=== PATIENT | female | born 1985 | race Caucasian/White ===

== ENCOUNTER 2016-12-31 19:12 | Emergency (ER) | payer MEDICAID, OTHER, SELFPAY ==
[~2016-12-31] VITALS: Ht 165.1 cm; Wt 86.6 kg
[~2016-12-31 19:12] MED LIST: ACET50TA PO; IBUP80TA PO; VITAPRTA PO
[2016-12-31] MEDS ORDERED: IBUPROFEN 600 MG TAB PO ONE (20:30)
[2016-12-31] MEDS ORDERED: IBUP-1022 PO (20:49)
[2016-12-31 20:59] VITALS: BP 131/77
--- NOTE | 2017-01-01 01:30 | REP ---
Clinical: Pain. Technique: AP, lateral, bilateral oblique views right foot . Findings: The osseous structures and joint spaces are intact and normal. Small calcaneal heal spur noted. There is no evidence for acute fracture or dislocation. Surrounding soft tissues are unremarkable. No subcutaneous emphysema or radiodense foreign body. Impression: Calcaneal heal spur. No acute fracture or dislocation. Signed by Mark Carmona MD 01/01/2017 01:22 A
== END 2016-12-31 21:01 | disposition home or self-care (01) ==
LOC: M ED 19:12
DX: S96.911A Strain of unspecified muscle and tendon at ankle and foot level, right foot, initial encounter (principal); M77.31 Calcaneal spur, right foot; W19.XXXA Unspecified fall, initial encounter; Y92.019 Unspecified place in single-family (private) house as the place of occurrence of the external cause; Y93.89 Activity, other specified; Y99.8 Other external cause status; F17.200 Nicotine dependence, unspecified, uncomplicated

== ENCOUNTER 2017-11-20 10:53 | Emergency (ER) | payer OTHER, SELFPAY ==
[2017-11-20] MEDS: cefTRIAXone SOD 1 GM VIAL (J0696) IM (12:12)
== END 2017-11-20 12:35 | disposition home or self-care (01) ==
LOC: M ED 10:53
DX: L03.211 Cellulitis of face (principal); S02.5XXD Fracture of tooth (traumatic), subsequent encounter for fracture with routine healing; X58.XXXD Exposure to other specified factors, subsequent encounter; Y92.89 Other specified places as the place of occurrence of the external cause; Z91.018 Allergy to other foods; Z91.030 Bee allergy status; Z87.891 Personal history of nicotine dependence
CPT/HCPCS: J0696

== ENCOUNTER → 2018-03-09 | Outpatient (REF) | payer OTHER | LOC: M LAB REF 17:12 | DX: J02.9 Acute pharyngitis, unspecified (principal) ==

== ENCOUNTER 2018-12-23 19:02 | Emergency (ER) | payer OTHER ==
[~2018-12-23] VITALS: Ht 165.1 cm; Wt 93.6 kg
[~2018-12-23 19:02] MED LIST changes: -ACET50TA PO; +HYDR-3715 PO; +IBUP-1022 PO; +KEFL500C17 PO; +MAPA500T2 PO; +TYLE325T5 PO
[2018-12-23 20:05] LABS: BASO % 0.2 % (0.0-1.0); EOS # 0.2 10^3/uL (0.0-0.50); EOS % 2.6 % (0.0-3.0); HEMATOCRIT 40.4 % (36.0-47.0); LYMPH # 2.6 10^3/uL (1.5-4.5); LYMPH % 30.5 % (24.0-44.0); MEAN CORPUSCULAR HGB CONC 32.2 g/dl (32.0-36.5); MONO # 0.6 10^3/uL (0.0-0.8); MONO % 6.6 % (0.0-5.0); NEUTROPHILS # 5.2 10^3/uL (1.8-7.7); NEUTROPHILS % 59.8 % (36.0-66.0); PLATELET COUNT, AUTOMATED 290 10^3/uL (150-450); RED BLOOD COUNT 4.49 10^6/uL (4.00-5.40); WHITE BLOOD COUNT 8.6 10^3/uL (4.0-10.0)
[2018-12-23 20:32] LABS: ALBUMIN 3.9 GM/DL (3.2-5.2); ALT/SGPT 30 U/L (12-78); BILIRUBIN,DIRECT < 0.1 MG/DL (0.0-0.2); BILIRUBIN,TOTAL 0.3 MG/DL (0.2-1.0); BLOOD UREA NITROGEN 9 MG/DL (7-18); CALCIUM LEVEL 9.4 MG/DL (8.5-10.1); CARBON DIOXIDE LEVEL 26 MEQ/L (21-32); CHLORIDE LEVEL 109 MEQ/L (98-107); CREATININE FOR GFR 0.78 MG/DL (0.55-1.30); GLOMERULAR FILTRATION RATE > 60.0 (>60); GLUCOSE, FASTING 84 MG/DL (70-100); LIPASE 188 U/L (73-393); POTASSIUM SERUM 4.4 MEQ/L (3.5-5.1); SODIUM LEVEL 142 MEQ/L (136-145); TOTAL PROTEIN 7.7 GM/DL (6.4-8.2)
[2018-12-23] MEDS ORDERED: ONDANSETRON 4MG/2ML VIAL (J2405) IV ONE (20:45)
[2018-12-23] MEDS ORDERED: KETOROLAC 30 MG/ML VIAL (J1885) IV ONE (20:45)
[2018-12-23] MEDS ORDERED: ISOVUE-370 76% 100ML VIAL (Q9967) As Ordered ONE (21:02)
--- NOTE | 2018-12-23 22:26 | REPVR ---
EXAM: CT Abdomen and Pelvis With Contrast EXAM DATE/TIME: 12/23/2018 9:08 PM CLINICAL HISTORY: 33 years old, female; Abdominal pain; Localized; Left lower quadrant (llq); Additional info: Llq pain, RO diverticulitis TECHNIQUE: Imaging protocol: Axial computed tomography images of the abdomen and pelvis with intravenous contrast. Coronal and sagittal reformatted images were created and reviewed. Radiation optimization: All CT scans at this facility use at least one of these dose optimization techniques: automated exposure control; mA and/or kV adjustment per patient size (includes targeted exams where dose is matched to clinical indication); or iterative reconstruction. Contrast material: ISOVUE 370; Contrast volume: 100 ml; Contrast route: IV; COMPARISON: US OBS FOLL UP OR REPEAT EACH GES 09/04/2014 8:25 AM FINDINGS: Lungs: Mild dependent linear stranding and groundglass, likely due to atelectasis. Liver: Diffuse hepatic steatosis. Gallbladder and bile ducts: No radiodense gallstones. No biliary ductal dilatation. Pancreas: Unremarkable. Spleen: Unremarkable. Adrenals: Unremarkable. Kidneys and ureters: No mass. No radiodense calculi. No hydronephrosis. Stomach and bowel: No bowel wall thickening. No obstruction. No pneumatosis. Appendix: Normal. Intraperitoneal space: Trace nonspecific free pelvic fluid, likely physiologic. No organized fluid collection. No free air. Vasculature: Unremarkable. No aneurysm. Lymph nodes: No pathologically enlarged lymph nodes. Bladder: Unremarkable. Reproductive: 2.5 x 2.1 cm left adnexal cystic lesion, likely a dominant follicle. Bones/joints: No acute osseous abnormality. Osteopenia. Soft tissues: Unremarkable. IMPRESSION: 1. No CT evidence of acute intra-abdominal or pelvic pathology. 2. Additional findings, as above. Electronically signed by: Chadwick Hong On 12/23/2018 22:25:47 PM
--- NOTE | 2018-12-23 22:32 | REPVR ---
EXAM: US Pelvis Complete, Transabdominal and US Pelvis, Transvaginal EXAM DATE/TIME: 12/23/2018 9:49 PM CLINICAL HISTORY: 33 years old, female; Pelvic pain; Additional info: Left pelvic ain TECHNIQUE: Imaging protocol: Real-time transabdominal and transvaginal pelvic ultrasound (complete) with image documentation. Transvaginal imaging was used for better evaluation of the endometrium and adnexa. COMPARISON: CT ABD/PEL W/IV CONTRAST ONLY 12/23/2018 9:04 PM FINDINGS: Uterus/cervix: 10.1 x 4.9 x 6.8 cm. Normal endometrial thickness, measuring approximately 15 mm. Right ovary: 3.4 x 1.2 x 2.3 cm. No mass. Normal ovarian blood flow. Left ovary: 2.7 x 2.8 x 2.5 cm. 2.3 x 2 x 2.3 cm dominant follicle. No solid mass. Normal ovarian blood flow. Free fluid: None. Bladder: Normal. IMPRESSION: No acute sonographic findings. Electronically signed by: Chadwick Hong On 12/23/2018 22:32:13 PM
[2018-12-23 23:16] VITALS: BP 128/74
== END 2018-12-23 23:30 | disposition home or self-care (01) ==
LOC: M ED 19:02
DX: N83.292 Other ovarian cyst, left side (principal); K21.9 Gastro-esophageal reflux disease without esophagitis
CPT/HCPCS: 74177; 76830; 76856; 80048; 80076; 81001; 83690; 84702; 85025; 93976; 96374; 96375; 99284; J1885; J2405; Q9967

== ENCOUNTER → 2020-07-06 | Outpatient (REF) | payer OTHER ==
[2020-07-06 20:35] LABS: APPEARANCE, URINE MANUAL CLOUDY (CLEAR); BILIRUBIN, URINE MANUAL OBSCURED (NEGATIVE); COLOR, URINE MANUAL RED (YELLOW); GLUCOSE, URINE (UA) MANUAL OBSCURED mg/dL (NEGATIVE); KETONE, URINE MANUAL OBSCURED mg/dL (NEGATIVE); LEUKOCYTE ESTERASE, URINE MAN OBSCURED (NEGATIVE); NITRITE, URINE MANUAL OBSCURED (NEGATIVE); PH,URINE MAN OBSCURED UNITS (5.0 - 7.0); PROTEIN, URINE MANUAL OBSCURED mg/dL (NEGATIVE); SPECIFIC GRAVITY,URINE MANUAL 1.029 (1.002-1.035); UROBILINOGEN, URINE MANUAL OBSCURED mg/dl (NORMAL)
[2020-07-06 20:36] LABS: BACTERIA, URINE MOD AMOUNT; BLOOD URINE MANUAL OBSCURED (NEGATIVE); HYALINE CAST, URINE NONE SEEN /lpf (0-1); SQUAMOUS EPITHELIAL CELL URINE MOD AMOUNT /hpf (SMALL AMT)
== END ==
LOC: M LAB 20:06
PROVIDERS: ATTEND Physician Assistant Medical
DX: N39.0 Urinary tract infection, site not specified (principal)

== ENCOUNTER 2021-08-27 19:46 | Emergency (ER) | payer OTHER ==
[~2021-08-27] VITALS: Ht 165.1 cm; Wt 87.3 kg
[2021-08-27] MEDS ORDERED: NITROGLYCERIN 0.4 MG SUBL TABLET SL PRN (21:25)
[2021-08-27] MEDS ORDERED: ASPIRIN 81 MG CHEW TABLET PO ONE (21:25)
[2021-08-27 21:38] LABS: BASO # 0.1 10^3/uL (0.0-0.2); BASO % 0.5 % (0.0-1.0); EOS # 0.1 10^3/uL (0.0-0.5); EOS % 1.1 % (0.0-3.0); HEMATOCRIT 40.6 % (36.0-47.0); HEMOGLOBIN 13.5 g/dl (12.0-15.5); LYMPH # 2.4 10^3/uL (1.5-5.0); LYMPH % 23.5 % (24.0-44.0); MEAN CORPUSCULAR HEMOGLOBIN 28.8 pg (27.0-33.0); MEAN CORPUSCULAR HGB CONC 33.3 g/dl (32.0-36.5); MEAN CORPUSCULAR VOLUME 86.6 fl (80.0-96.0); MONO # 0.6 10^3/uL (0.0-0.8); NEUTROPHILS % 68.5 % (36.0-66.0); PLATELET COUNT, AUTOMATED 303 10^3/uL (150-450); RED BLOOD COUNT 4.69 10^6/uL (4.00-5.40); WHITE BLOOD COUNT 10.2 10^3/uL (4.0-10.0)
[2021-08-27 22:22] LABS: CK-MB VALUE MASS < 1.0 NG/ML (<3.6); CPK CREATINE PHOSPHOKINASE 57 U/L (26-192); MB/CK RELATIVE INDEX 1.75 (< OR =4)
[2021-08-27 22:23] LABS: ALBUMIN 4.4 GM/DL (3.2-5.2); ALT/SGPT 22 U/L (12-78); BILIRUBIN,DIRECT < 0.1 MG/DL (0.0-0.2); BILIRUBIN,TOTAL 0.4 MG/DL (0.2-1.0); BLOOD UREA NITROGEN 13 MG/DL (7-18); CALCIUM LEVEL 9.7 MG/DL (8.5-10.1); CARBON DIOXIDE LEVEL 27 MEQ/L (21-32); CHLORIDE LEVEL 107 MEQ/L (98-107); CREATININE FOR GFR 0.91 MG/DL (0.55-1.30); FREE T4 1.07 NG/DL (0.76-1.46); GLOMERULAR FILTRATION RATE > 60.0 (>60); GLUCOSE, FASTING 78 MG/DL (70-100); LIPASE 115 U/L (73-393); NT-PRO BNP 19 PG/ML (<125); SODIUM LEVEL 139 MEQ/L (136-145); TOTAL PROTEIN 7.9 GM/DL (6.4-8.2)
[2021-08-27] MEDS ORDERED: ISOVUE-370 76% 100ML VIAL As Ordered ONE (22:34)
[2021-08-27 23:45] VITALS: BP 137/87
== END 2021-08-28 00:16 | disposition home or self-care (01) ==
LOC: M ED 19:46
DX: R07.9 Chest pain, unspecified (principal); R06.02 Shortness of breath; R05.9 Cough, unspecified; R42 Dizziness and giddiness; Z87.891 Personal history of nicotine dependence; Z91.030 Bee allergy status
CPT/HCPCS: 36415; 71046; 71275; 80048; 80076; 82550; 82553; 83690; 83880; 84439; 84443; 84484; 85025; 93005; 93041; 94760; 99285; Q9967

== ENCOUNTER → 2023-04-03 | Outpatient (CLI) | payer OTHER | LOC: M PLAIMG 10:47 | PROVIDERS: ATTEND Otolaryngology | DX: J32.9 Chronic sinusitis, unspecified (principal) ==

== ENCOUNTER → 2023-04-09 | Outpatient (CLI) | payer OTHER | LOC: M RAD 07:05 | PROVIDERS: ATTEND Otolaryngology | DX: R22.1 Localized swelling, mass and lump, neck (principal) ==

== ENCOUNTER → 2023-05-19 | Outpatient (CLI) | payer OTHER ==
[~2023-05-19] MED LIST changes: +AMOX500T2 PO; +IRON240T PO; +LIDOCAINE 1% MDV 20ML VIAL As Ordered ONE; +MULTTAB24 PO
[2023-05-19 09:25] VITALS: TEMP 99.2
[2023-05-19 11:10] VITALS: BP 157/97; O2SAT 100
== END ==
LOC: M IRPRO 09:01
PROVIDERS: ATTEND Otolaryngology
DX: R22.1 Localized swelling, mass and lump, neck (principal)

== ENCOUNTER 2023-07-01 17:00 | Observation (INO) | payer OTHER ==
[~2023-07-01] VITALS: Ht 165.1 cm; Wt 91.6 kg
[~2023-07-01 17:00] MED LIST changes: -LIDOCAINE 1% MDV 20ML VIAL As Ordered ONE
[2023-07-01 17:59] LABS: BASO % 0.4 % (0.0-1.0); EOS # 0.2 10^3/uL (0.0-0.5); EOS % 1.9 % (0.0-3.0); HEMATOCRIT 37.4 % (36.0-47.0); HEMOGLOBIN 11.9 g/dl (12.0-15.5); LYMPH % 24.2 % (24.0-44.0); MEAN CORPUSCULAR HEMOGLOBIN 26.9 pg (27.0-33.0); MEAN CORPUSCULAR HGB CONC 31.8 g/dl (32.0-36.5); MEAN CORPUSCULAR VOLUME 84.6 fl (80.0-96.0); MONO # 0.5 10^3/uL (0.0-0.8); MONO % 5.6 % (2.0-8.0); NEUTROPHILS # 5.5 10^3/uL (1.5-8.5); NEUTROPHILS % 67.5 % (36.0-66.0); PLATELET COUNT, AUTOMATED 346 10^3/uL (150-450); RED BLOOD COUNT 4.42 10^6/uL (4.00-5.40); WHITE BLOOD COUNT 8.1 10^3/uL (4.0-10.0)
[2023-07-01 18:17] LABS: LIPASE 47 U/L (12-53)
[2023-07-01 18:19] LABS: ALBUMIN 4.1 G/DL (3.2-5.2); ALKALINE PHOSPHATASE 56 U/L (46-116); ALT/SGPT 17 U/L (7.0-40); AST/SGOT 22 U/L (<34); BILIRUBIN,DIRECT < 0.1 MG/DL (<0.4); BILIRUBIN,TOTAL 0.3 MG/DL (0.3-1.2); BLOOD UREA NITROGEN 13 MG/DL (9-23); CALCIUM LEVEL 9.4 MG/DL (8.5-10.1); CARBON DIOXIDE LEVEL 25 MMOL/L (20-31); CHLORIDE LEVEL 108 MMOL/L (98-107); CREATININE FOR GFR 0.87 MG/DL (0.55-1.30); GLOMERULAR FILTRATION RATE > 60.0 (>60); GLUCOSE, FASTING 90 MG/DL (60-100); POTASSIUM SERUM 3.9 MMOL/L (3.5-5.1); SODIUM LEVEL 137 MMOL/L (136-145); TOTAL PROTEIN 7.9 G/DL (5.7-8.2)
[2023-07-01] MEDS ORDERED: KETOROLAC 30 MG/ML 1ML VIAL IV ONE (19:20)
[2023-07-01] MEDS ORDERED: ONDANSETRON 4MG 2ML VIAL IV ONE (19:20)
[2023-07-01] MEDS ORDERED: NS 1,000 ML IV ONE (19:20)
[2023-07-01] MEDS ORDERED: ISOVUE-370 76% 100ML VIAL As Ordered ONE (19:25)
[2023-07-01] MEDS ORDERED: MORPHINE 4 MG/ML 1ML VIAL IV PRN (20:55)
[2023-07-01] MEDS ORDERED: KETOROLAC 30 MG/ML 1ML VIAL IV PRN (20:55)
[2023-07-01] MEDS ORDERED: ONDANSETRON 4MG 2ML VIAL IV PRN (20:55)
[2023-07-01] MEDS ORDERED: PIPERACILLIN/TAZOBACTAM SOD 4.5 GM in D5W MINI-BAG PLUS 50 ML IV ONE (20:55)
[2023-07-01] MEDS ORDERED: HOME MED LIST COMPLETE! XX SCH (21:40)
[2023-07-01 22:30] VITALS: BP 125/76; TEMP 98.6; O2SAT 100
[2023-07-01] MEDS: LR 1,000 ML IV SCH (23:03)
[2023-07-02] VITALS (8 sets, daily range): BP systolic 115–143; BP diastolic 68–85; TEMP 96.9–98.3; O2SAT 95–100
[2023-07-02 05:08] LABS: BASO % 0.3 % (0.0-1.0); EOS # 0.2 10^3/uL (0.0-0.5); EOS % 2.8 % (0.0-3.0); HEMATOCRIT 32.3 % (36.0-47.0); HEMOGLOBIN 10.1 g/dl (12.0-15.5); LYMPH # 2.5 10^3/uL (1.5-5.0); LYMPH % 34.2 % (24.0-44.0); MEAN CORPUSCULAR HEMOGLOBIN 26.8 pg (27.0-33.0); MEAN CORPUSCULAR HGB CONC 31.3 g/dl (32.0-36.5); MEAN CORPUSCULAR VOLUME 85.7 fl (80.0-96.0); MONO # 0.6 10^3/uL (0.0-0.8); MONO % 7.8 % (2.0-8.0); NEUTROPHILS # 3.9 10^3/uL (1.5-8.5); NEUTROPHILS % 54.6 % (36.0-66.0); PLATELET COUNT, AUTOMATED 279 10^3/uL (150-450); RED BLOOD COUNT 3.77 10^6/uL (4.00-5.40); WHITE BLOOD COUNT 7.2 10^3/uL (4.0-10.0)
[2023-07-02 05:42] LABS: C REACTIVE PROTEIN QUANTITATIV < 0.40 MG/DL (<1.0)
[2023-07-02 05:47] LABS: ALBUMIN 3.2 G/DL (3.2-5.2); ALKALINE PHOSPHATASE 43 U/L (46-116); ALT/SGPT 12 U/L (7.0-40); AST/SGOT 15 U/L (<34); BILIRUBIN,TOTAL 0.4 MG/DL (0.3-1.2); BLOOD UREA NITROGEN 14 MG/DL (9-23); CALCIUM LEVEL 8.3 MG/DL (8.5-10.1); CARBON DIOXIDE LEVEL 25 MMOL/L (20-31); CHLORIDE LEVEL 110 MMOL/L (98-107); CREATININE FOR GFR 0.84 MG/DL (0.55-1.30); GLOMERULAR FILTRATION RATE > 60.0 (>60); GLUCOSE, FASTING 88 MG/DL (60-100); POTASSIUM SERUM 4.1 MMOL/L (3.5-5.1); SODIUM LEVEL 138 MMOL/L (136-145); TOTAL PROTEIN 6.2 G/DL (5.7-8.2)
[2023-07-02] MEDS: LR 1,000 ML IV SCH ×2 (05:55→13:17)
[2023-07-02 06:19] LABS: URINE PREG TEST NEGATIVE (NEGATIVE)
[2023-07-02] MEDS: ACETAMINOPHEN TAB 650MG DOSE (2X325MG) PO PRN ×2 (06:48→11:55)
[2023-07-02] MEDS: PANTOPRAZOLE 40MG VIAL IV SCH (08:55)
[2023-07-02] MEDS: PIPERACILLIN/TAZOBACTAM SOD 3.375 GM in D5W MINI-BAG PLUS 50 ML IV SCH ×2 (14:23→20:27)
[2023-07-02] MEDS ORDERED: LIDOCAINE 1% SDV 30ML VIAL As Ordered ONE (16:51)
[2023-07-02] MEDS ORDERED: LR 1,000 ML IV SCH (17:50)
[2023-07-02] MEDS ORDERED: oxyCODONE 5MG TAB PO PRN (17:50)
[2023-07-02] MEDS ORDERED: fentaNYL 100 MCG/2 ML INJECTION IV PRN (17:50)
[2023-07-02] MEDS ORDERED: ONDANSETRON 4MG 2ML VIAL IV PRN (17:50)
[2023-07-02] MEDS ORDERED: HYDROMORPHONE HCL 0.5 MG/ 0.5 ML SYRINGE IV PRN (17:50)
[2023-07-02] MEDS ORDERED: fentaNYL 100 MCG/2 ML INJECTION As Ordered ONE ×2 (17:57→18:09)
[2023-07-02] MEDS ORDERED: diphenhydrAMINE 50MG/ML VIAL As Ordered ONE (17:59)
[2023-07-02] MEDS ORDERED: PERCOCET 5MG/325MG TAB PO PRN (18:00)
[2023-07-02] MEDS: PERCOCET 5MG/325MG TAB PO PRN (23:22)
[2023-07-03] VITALS: BP 111/58; TEMP 98.2; O2SAT 96
[2023-07-03] MEDS: PIPERACILLIN/TAZOBACTAM SOD 3.375 GM in D5W MINI-BAG PLUS 50 ML IV SCH ×2 (02:04→08:18)
[2023-07-03 04:00] VITALS: BP 106/55; TEMP 98.1; O2SAT 97
[2023-07-03 06:45] LABS: BASO % 0.1 % (0.0-1.0); HEMATOCRIT 31.9 % (36.0-47.0); HEMOGLOBIN 10.1 g/dl (12.0-15.5); LYMPH # 1.2 10^3/uL (1.5-5.0); LYMPH % 13.2 % (24.0-44.0); MEAN CORPUSCULAR HEMOGLOBIN 27.2 pg (27.0-33.0); MEAN CORPUSCULAR HGB CONC 31.7 g/dl (32.0-36.5); MONO # 0.5 10^3/uL (0.0-0.8); MONO % 5.4 % (2.0-8.0); NEUTROPHILS # 7.6 10^3/uL (1.5-8.5); NEUTROPHILS % 81.1 % (36.0-66.0); PLATELET COUNT, AUTOMATED 307 10^3/uL (150-450); RED BLOOD COUNT 3.71 10^6/uL (4.00-5.40); WHITE BLOOD COUNT 9.3 10^3/uL (4.0-10.0)
[2023-07-03] MEDS: PERCOCET 5MG/325MG TAB PO PRN (08:19)
[2023-07-03] MEDS: PANTOPRAZOLE 40MG VIAL IV SCH (08:19)
[2023-07-03] MEDS ORDERED: HYDR-3713 PO (08:42)
== END 2023-07-03 10:45 | disposition home or self-care (01) ==
LOC: M ED 17:00 → M ED INP 17:01 → M MS5PR 22:30
PROVIDERS: ADMIT Surgery; ATTEND Surgery
DX: K35.80 Unspecified acute appendicitis (principal); Z91.018 Allergy to other foods; Z88.2 Allergy status to sulfonamides; Z91.030 Bee allergy status; E66.9 Obesity, unspecified
CPT/HCPCS: 36415; 44970; 71260; 74177; 80048; 80053; 80076; 81001; 83690; 84703; 85025; 86140; 87635; 88304; 96361; 96365; 96366; 96375; 96376; 99284; C9113; J0665; J1200; J1885; J2405; J2543; J3010; Q9967

== ENCOUNTER → 2023-09-15 | Outpatient (CLI) | payer OTHER ==
[~2023-09-15] MED LIST changes: +HYDR-3713 PO
== END ==
LOC: M RAD 14:55
PROVIDERS: ATTEND Otolaryngology
DX: R22.1 Localized swelling, mass and lump, neck (principal)

== ENCOUNTER 2023-12-22 11:11 | Day surgery (SDC) | payer OTHER ==
[~2023-12-22] VITALS: Ht 165.1 cm; Wt 89.4 kg
[2023-12-22] MEDS ORDERED: AMOX875T2 PO (11:41)
[2023-12-22] MEDS ORDERED: LR 1,000 ML IV SCH ×2 (11:45→15:05)
[2023-12-22] MEDS ORDERED: MIDAZOLAM INJ 2MG/2ML VIAL As Ordered ONE (12:03)
[2023-12-22] MEDS ORDERED: LIDOCAINE 2% 100MG/5ML SDV (FOR ANES.) As Ordered ONE (12:03)
[2023-12-22] MEDS ORDERED: fentaNYL 100 MCG/2 ML INJECTION As Ordered ONE (12:03)
[2023-12-22] MEDS ORDERED: ROCURONIUM BROMIDE 50MG/5ML VIAL As Ordered ONE (12:03)
[2023-12-22] MEDS ORDERED: propofoL 200 MG/20 ML VIAL As Ordered ONE (12:03)
[2023-12-22] MEDS ORDERED: ONDANSETRON 4MG 2ML VIAL As Ordered ONE (13:47)
[2023-12-22] MEDS ORDERED: ACETAMINOPHEN 1000MG 100ML IV BAG As Ordered ONE (13:47)
[2023-12-22] MEDS ORDERED: HYDROmorphone HCL 2MG/ML 1ML VIAL As Ordered ONE (13:52)
[2023-12-22] MEDS: COCAINE 4% 4ML NASAL SOLUTION BTL As Ordered ONE (14:08)
[2023-12-22] MEDS: OXYMETAZOLINE 0.05% NASAL SPRAY (AFRIN) As Ordered ONE (14:09)
[2023-12-22] MEDS: LIDOCAINE W/EPINEPHRINE 1% 20ML VIAL As Ordered ONE (14:50)
[2023-12-22] MEDS ORDERED: ONDANSETRON 4MG 2ML VIAL IV PRN (15:05)
[2023-12-22] MEDS ORDERED: fentaNYL 100 MCG/2 ML INJECTION IV PRN (15:05)
[2023-12-22] MEDS: oxyCODONE 5MG TAB PO PRN (15:20)
[2023-12-22] MEDS: hydrALAZINE 20MG/ML 1ML VIAL IV PRN (15:29)
[2023-12-22 15:34] VITALS: BP 176/84
[2023-12-22 16:15] VITALS: BP 139/86; TEMP 97.2; O2SAT 96
== END 2023-12-22 16:23 | disposition home or self-care (01) ==
LOC: M SDC 11:11
PROVIDERS: ATTEND Otolaryngology
DX: J32.9 Chronic sinusitis, unspecified (principal); Z88.2 Allergy status to sulfonamides; Z91.030 Bee allergy status; Z91.018 Allergy to other foods
CPT/HCPCS: 31255; 31259; 31267; 61782; 88305; A6024; C9143; J0131; J0360; J1100; J1170; J2250; J2405; J3010